=== PATIENT | female | born 2005 | race African-American/Black ===

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

== ENCOUNTER 2024-01-03 00:03 | Emergency (ER) | payer OTHER ==
[2024-01-03] MEDS ORDERED: Acetaminophen 500 MG TAB ONE (00:31)
== END 2024-01-03 01:47 | disposition admitted as inpatient to this hospital (09) ==
LOC: ERS 00:03
DX: O26.892 Other specified pregnancy related conditions, second trimester (principal); Z3A.26 26 weeks gestation of pregnancy
CPT/HCPCS: 36415; 76815; 84702

== ENCOUNTER 2024-03-01 13:01 | Day surgery (SDC) | payer OTHER ==
[2024-03-01] MEDS ORDERED: Acetaminophen 500 MG TAB ONE (13:07)
[2024-03-01] MEDS: Acetaminophen 500 MG TAB PO SCH (13:08)
[2024-03-01] MEDS: Ferumoxytol (NON ERSD) 510 MG in 0.9 % Sodium Chloride 150 ML IVPB SCH (13:41)
[2024-03-01 17:30] VITALS: BP 103/61; TEMP 97.5
== END 2024-03-01 17:58 | disposition home or self-care (01) ==
LOC: ONC/OP 13:01
PROVIDERS: ATTEND Obstetrics & Gynecology
DX: O99.019 Anemia complicating pregnancy, unspecified trimester (principal); Z3A.00 Weeks of gestation of pregnancy not specified
CPT/HCPCS: 96365; 96366; Q0138